=== PATIENT | female | born 1980 | race Caucasian/White ===

== ENCOUNTER 2023-08-30 01:52 | Emergency (ER) | payer BC, SELFPAY ==
[2023-08-30 01:56] VITALS: BP 147/88; PULSE 98; RESP 22; TEMP 36.7; O2SAT 96; BMI 71.5
--- NOTE | 2023-08-30 02:04 | W.ED.GENADLT ---
HPI - General Adult General: Chief complaint: General Medical Stated complaint: Heavy Period Time Seen by Provider: 08/30/23 01:56 History of Present Illness: 43-year-old female who presents emergency room with heavy vaginal bleeding. This been going on for a month. She has been started on control and then on TXA. She is from [place] and appear visiting. She said tonight she started feeling lightheaded and so she came to the emergency room. She says she been passing clots. Review of Systems Narrative: Constitutional symptoms: Negative except as documented in HPI. Skin symptoms: Negative except as documented in HPI. Eye symptoms: Negative except as documented in HPI. ENMT symptoms: Negative except as documented in HPI. Respiratory symptoms: Negative except as documented in HPI. Cardiovascular symptoms: Negative except as documented in HPI. Gastrointestinal symptoms: Negative except as documented in HPI. Genitourinary symptoms: Negative except as documented in HPI. Musculoskeletal symptoms: Negative except as documented in HPI. Neurologic symptoms: Negative except as documented in HPI. Psychiatric symptoms: Negative except as documented in HPI. Endocrine symptoms: Negative except as documented in HPI. [facility] ED Female Reproductive History: Date of last menstrual period: 08/30/23 Physical Exam Narrative: EXAM NARRATIVE: General: Alert, no acute distress. Skin: warm and dry Head: Normocephalic Neck: Trachea midline Eye: Extraocular movements are intact. Ears, nose, mouth and throat: Oral mucosa moist Respiratory: Respirations are non-labored Musculoskeletal: Normal ROM Neurological: Alert and oriented, No focal neurological deficit observed. Psychiatric: Cooperative, appropriate mood & affect. Course Vital Signs: Vital signs: Vital Signs Temperature 98.0 F 08/30/23 01:56 Pulse Rate 84 08/30/23 02:30 Respiratory Rate 18 08/30/23 02:30 Blood Pressure 137/80 08/30/23 02:30 Pulse Oximetry 94 08/30/23 02:30 Oxygen Delivery Me thod Room Air 08/30/23 01:56 MDM - General Adult Medical Decision Making Lab Review: Laboratory results were reviewed and interpreted by myself the emergency room physician. Patient is not overtly anemic with hemoglobin 12.2. BUN and creatinine are 12 and 0.6 which is normal. No urinary tract infection. Glucose is slightly elevated. I reviewed the patient's medical record. Reexamination: Patient remained stable. No increased work of breathing. Altered mental status. No focal motor deficits. Assessment and plan: Dysfunctional uterine bleeding - Discharged home - Discussed plan with patient. Answered any questions. - Evaluation and treatment of this problem were appropriate in the emergency setting. Lab Data 08/30/23 02:10 08/30/23 02:10 Laboratory Results WBC 7.11 10^3/uL (3.29-11.43) 08/30/23 02:10 RBC 4.40 10^6/uL (3.85-5.65) 08/30/23 02:10 Hgb 12.20 g/dL (11.27-16.99) 08/30/23 02:10 Hct 38.1 % (36-47) 08/30/23 02:10 MCV 86.6 fl (85-98) 08/30/23 02:10 MCH 27.7 pg (27-33) 08/30/23 02:10 MCHC 32.0 g/dL (30-55) 08/30/23 02:10 RDW 13.9 % (12.1-15.1) 08/30/23 02:10 Plt Count 289 10^3/cmm (157-399) 08/30/23 02:10 MPV 9.5 fL (7.4-10.4) 08/30/23 02:10 Neut % (Auto) 58.4 % 08/30/23 02:10 Lymph % (Auto) 28.8 % 08/30/23 02:10 [place] % (Auto) 5.6 % 08/30/23 02:10 Eos % (Auto) 6.2 % 08/30/23 02:10 Baso % (Auto) 0.7 % 08/30/23 02:10 Neut # (Auto) 4.15 10^3/uL (1.8-7.7) 08/30/23 02:10 Lymph # (Auto) 2.1 10^3/uL (0.8-4.8) 08/30/23 02:10 [place] # (Auto) 0.4 10^3/uL (0.2-0.9) 08/30/23 02:10 Eos # (Auto) 0.4 10^3/uL (0.0-0.8) 08/30/23 02:10 Baso # (Auto) 0.1 10^3/uL (0.0-0.1) 08/30/23 02:10 Nucleated RBC % (auto) 0 % 08/30/23 02:10 Nucleated RBCs # 0.0 /100WBC 08/30/23 02:10 Sodium 137 mmol/L (136-145) 08/30/23 02:10 Potassium 4.0 mmol/L (3.5-5.1) 08/30/23 02:10 Chloride 100 mmol/L (98-107) 08/30/23 02:10 Carbon Dioxide 23 mmol/L (22-29) 08/30/23 02:10 Anion Gap 18.0 (5-19) 08/30/23 02:10 BUN 12 mg/dL (6-20) 08/30/23 02:10 Creatinine 0.6 mg/dL (0.5-0.9) 08/30/23 02:10 GFR Calculation 109.1 mL/min (90-130) 08/30/23 02:10 Glucose 179 mg/dL (65-115) H 08/30/23 02:10 Calculated Osmolality 288 mOsm/kg (285-295) 08/30/23 02:10 Calcium 8.9 mg/dL (8.5-10.5) 08/30/23 02:10 Total Bilirubin 0.2 mg/dL (0.15-1.2) 08/30/23 02:10 AST 13 U/L (0-32) 08/30/23 02:10 ALT 13 U/L (0-33) 08/30/23 02:10 Alkaline Phosphatase 95 U/L (35-105) 08/30/23 02:10 Total Protein 7.9 g/dL (6.6-8.7) 08/30/23 02:10 Albumin 4.1 g/dL (3.5-5.2) 08/30/23 02:10 Globulin 3.8 g/dL (1.3-4.6) 08/30/23 02:10 Urine Color Yellow (Yellow) 08/30/23 02:02 Urine Appearance Cloudy (CLEAR) A 08/30/23 02:02 Urine pH 5 (5-7) 08/30/23 02:02 Ur Specific [place] 1.020 (1.005-1.030) 08/30/23 02:02 Urine Protein Neg (Negative) 08/30/23 02:02 Urine Glucose (UA) Norm (Normal) 08/30/23 02:02 Urine Ketones 1+ (Negative) H 08/30/23 02:02 Urine Blood 3+ (Negative) H 08/30/23 02:02 Urine Nitrate Negative (Negative) 08/30/23 02:02 Urine Bilirubin Neg (Negative) 08/30/23 02:02 Urine Urobilinogen Neg mg/dL (Negative) 08/30/23 02:02 Ur Leukocyte Esterase Negative (Negative) 08/30/23 02:02 Urine RBC 21-50 /hpf (0-2) 08/30/23 02:02 Urine WBC 0-4 /hpf (0-5) H 08/30/23 02:02 Ur Squamous Epith Cells 0-4 /hpf (0-5) H 08/30/23 02:02 Amorphous Sediment Not Reportable 08/30/23 02:02 Urine Bacteria Trace /hpf (NONE) 08/30/23 02:02 All radiology interpretation(s) finalized by discharge Discharge Plan Discharge Patient Disposition: Home Clinical Impression: Dysmenorrhea Condition: Stable Discharge Orders: Discharge ED (Routine); Ordered 08/30/23 Ordered By: Cristina Davis Discharge Diet: Usual diet Discharge Activity: Increase activity as tolerated Patient Instructions: Abnormal (Dysfunctional) Uterine Bleeding (ED) Activity Restrictions/Additional Instructions: Thank you for choosing [facility] for your healthcare needs today. Please realize this is an emergency room and that we are providing you with a medical screening exam and this may not be complete and all inclusive of all the testing and or work up that you may need to determine your ailment or severity of your illness. You have been screened and evaluated and felt safe for discharge. Health conditions do change or evolve sometimes and as such it is important that you follow up with your Primary Doctor to be re checked, 3-5 days is a general good time frame for follow up. You are always welcome to return to the ED for re assessment if your symptoms are worsening or you have new concerns Coding Level of Care Code ED Processing Technician for Addison Thomas
[2023-08-30 02:18] LABS: Basophils # 0.1 10^3/uL (0.0-0.1); Basophils % 0.7 %; Eosinophils # 0.4 10^3/uL (0.0-0.8); Eosinophils % 6.2 %; Hematocrit 38.1 % (36-47); Lymphocytes # 2.1 10^3/uL (0.8-4.8); Lymphocytes % 28.8 %; Mean Corpuscular Hemoglobin 27.7 pg (27-33); Mean Corpuscular Volume 86.6 fl (85-98); Mean Platelet Volume 9.5 fL (7.4-10.4); Monocytes # 0.4 10^3/uL (0.2-0.9); Monocytes % 5.6 %; Neutrophils # 4.15 10^3/uL (1.8-7.7); Neutrophils % 58.4 %; Nucleated Red Blood Cells % 0 %; Platelet Count 289 10^3/cmm (157-399); Red Cell Distribution Width 13.9 % (12.1-15.1); White Blood Count 7.11 10^3/uL (3.29-11.43)
[2023-08-30 02:27] VITALS: BP 137/80; BP 138/75; BP 147/88; PULSE 108; PULSE 86; PULSE 96
[2023-08-30 02:30] VITALS: BP 137/80; PULSE 84; RESP 18; O2SAT 94
[2023-08-30 02:36] LABS: Alanine Aminotransferase 13 U/L (0-33); Albumin Level 4.1 g/dL (3.5-5.2); Alkaline Phosphatase 95 U/L (35-105); Aspartate Amino Transferase 13 U/L (0-32); Blood Urea Nitrogen 12 mg/dL (6-20); Calcium 8.9 mg/dL (8.5-10.5); Carbon Dioxide 23 mmol/L (22-29); Chloride 100 mmol/L (98-107); Creatinine Clr Calc Pharmacy 214.1753; Globulin 3.8 g/dL (1.3-4.6); Glomerular Filtration Rate 109.1 mL/min (90-130); Glucose 179 mg/dL (65-115); Osmolality Calculated 288 mOsm/kg (285-295); Sodium 137 mmol/L (136-145); Total Bilirubin 0.2 mg/dL (0.15-1.2); Total Protein 7.9 g/dL (6.6-8.7)
[2023-08-30 03:02] LABS: Bilirubin Urine Neg (Negative); Blood Urine 3+ (Negative); Glucose Urine UA Norm (Normal); Ketones Urine 1+ (Negative); Nitrate Urine Negative (Negative); Protein Urine Neg (Negative); Urine Appearance Cloudy (CLEAR); Urine Color Yellow (Yellow); Urobilinogen Urine Neg (Negative); pH Urine 5 (5-7)
[2023-08-30 03:03] LABS: Add Urine Culture? Yes; Bacteria Urine TRACE /hpf; Leukocyte Esterase Urine Negative (Negative); RBC Urine 21-50 /hpf (0-2); Squamous Epithelial Cell Urine 0-4 /hpf (0-5); WBC Urine 0-4 /hpf (0-5)
[2023-08-30 03:26] VITALS: BP 137/80; PULSE 84; RESP 18; TEMP 36.7; O2SAT 94
== END 2023-08-30 03:27 | disposition home or self-care (01) ==
PROVIDERS: Emergency Provider Emergency Medicine
DX: N94.6 Dysmenorrhea, unspecified (principal)
CPT/HCPCS: 80053; 81001; 85025; 87086; 99283